=== PATIENT | male | born 1975 | race Caucasian/White ===

== ENCOUNTER → 2020-01-30 | Outpatient (CLI) | payer OTHER ==
--- NOTE | 2020-01-30 09:25 | US ---
EXAM DESCRIPTION: Liver: ULTRASOUND. CLINICAL HISTORY: ABN RESULTS OF LIVER FUNCTION COMPARISON: None. TECHNIQUE: Transabdominal scannin-dimensional and Doppler modes. FINDINGS: Gallbladder: Surgically absent. No fluid in the gallbladder fossa. Non-tender with transducer pressure. Common bile duct: Not visualized. Liver: Heterogeneously increased and dates echogenicity; posterior liver and soft tissues posterior to the liver limited visualization. Contour liver capsule smooth where seen. No fluid around the liver. Intrahepatic biliary ducts normal caliber. Doppler hepatopedal flow portal vein. 8 mm at the hill hepatis. Long axis right lobe 21.6 cm. Pancreas: normal size and echogenicity. Duct not seen. Right kidney: long axis measures 10.3 cm. Volume 175.4 mL. Limited visualization. Normal echogenicity. 13 mm cortical thickness. No echogenic stones or hydronephrosis. Aorta proximal: 1.7 cm normal caliber. IMPRESSION: 1. Resolution of the study is limited due to patient large body habitus Previous cholecystectomy. Common bile duct not visualized. 2. Moderately enlarged liver with steatosis. Difficult visualization of the posterior liver and soft tissues posterior to the liver. Physiologic blood flow in the portal vein. Pancreas was visualized. 3. Limited visualization of the right kidney but otherwise unremarkable. Electronically signed by: Joseph Nesbitt MD 01/30/2020 9:24 AM CDT
== END ==
LOC: US 08:34
PROVIDERS: ATTEND Family Medicine
DX: R94.5 Abnormal results of liver function studies (principal); K76.0 Fatty (change of) liver, not elsewhere classified; Z90.49 Acquired absence of other specified parts of digestive tract

== ENCOUNTER → 2020-07-02 | Outpatient (CLI) | payer SELFPAY ==
--- NOTE | 2020-07-02 16:46 | CT ---
EXAM DESCRIPTION: Abdomen/Pelvis w/Contrast: Computed Tomography. CLINICAL HISTORY: 45 years Male LOWER ABDOMINAL PAIN COMPARISON: None. TECHNIQUE: Spiral-axial scans at 5 x 5 mm intervals through the abdomen and pelvis, after nonionic IV contrast and water-soluble oral contrast. Coronal and sagittal 2.0 mm reconstructions. Delayed five minute scans, liver through the pelvis. Axial-spiral 5mm. No adverse reactions. Total Exam DLP: 2812 mGy-cm. This exam was performed according to our departmental dose-optimization program which includes automated exposure control, adjustment of the mA and/or kV according to patient size and/or use of iterative reconstruction technique; to reduce radiation dose to as low as reasonably achievable (ALARA). FINDINGS: Lung bases and pleura: Circumscribed calcified nodule lateral recess left lower lobe on axial series 2, image 11 measuring 8.6 mm. Centrally calcified nodule same size slightly more anterior and superior on image seven. Minimum pleural thickening but no acute process. Liver, Stomach, Spleen, Adrenal Glands: Diffuse low-density in the liver but no focal lesions. Right lobe of the liver 20.5 cm in the craniocaudal axis. Stomach and other solid organs are negative. Pancreas, Gallbladder, Ducts: Surgical clips in the gallbladder fossa but no fluid. Pancreas and duct are negative. Kidneys and Ureters: Negative. Mesentery: No free air or free fluid. No stranding or fascial thickening. Aorta: Minimal atherosclerotic calcification but normal caliber. Small Bowel: No distention. Oral contrast in the distal two thirds of the bowel. Terminal Ileum/Cecum: Normal caliber well demonstrated by oral contrast. Oral contrast in the appendix which is normal in caliber. No inflammatory changes. Colon: Oral contrast proximal to distal. No distention or significant air-fluid levels. Minimal fatty infiltration of the distal descending colon and sigmoid colon. Pelvic Organs: No radiodense stones in the urinary bladder. No free fluid. Fatty right inguinal hernia not containing bowel. Spine and Bony Pelvis: Minimal narrowing of L5-S1 disc space and mild spondylosis. Narrowing of the canal and foramina. Abdominal Wall/Back Soft Tissues: Negative. IMPRESSION: 1. Hepatomegaly and fatty infiltration of the liver. No focal lesions. Prior cholecystectomy. No free fluid. 2. Well-circumscribed calcified partially calcified and calcified nodules in the subpleural lateral left lower lobe. Consider follow-up chest CT scan without IV contrast. 3. Fatty right inguinal hernia not containing bowel and no evidence of complications. Electronically signed by: Joseph Nesbitt MD 07/02/2020 4:45 PM PHYSICIAN'S ASSISTANT
== END ==
LOC: CT 11:52
PROVIDERS: ATTEND Family Medicine
DX: K76.0 Fatty (change of) liver, not elsewhere classified (principal); R16.0 Hepatomegaly, not elsewhere classified; K40.90 Unilateral inguinal hernia, without obstruction or gangrene, not specified as recurrent; R91.8 Other nonspecific abnormal finding of lung field

== ENCOUNTER → 2020-07-02 | Outpatient (CLI) | payer OTHER | LOC: GMAE 10:29 | PROVIDERS: ATTEND Family Medicine | DX: R10.30 Lower abdominal pain, unspecified (principal); R06.00 Dyspnea, unspecified ==